=== PATIENT | female | born 1985 | race African-American/Black ===

== ENCOUNTER 2017-03-30 20:23 | Emergency (ER) | payer MEDICAID, OTHER ==
[2017-03-30 20:39] VITALS: BP 124/77
--- NOTE | 2017-03-30 20:58 | ER Document Report ---
ED Skin Rash/Insect Bite/Abscs - General Chief Complaint: Itching Stated Complaint: RASH, ITCHING Time Seen by Provider: 03/30/17 20:41 Mode of Arrival: Ambulatory Information source: Patient TRAVEL OUTSIDE OF THE [place] IN LAST 30 DAYS: No - HPI Patient complains to provider of: Other - Itching Onset: Other - Months Onset/Duration: Constant Quality of pain: No pain Severity: Moderate Skin Temperature: Warm Quality of rash: Itchy Notes: Patient arrives with complaints of itching skin with swelling to her hands and feet. She states that this is been going on for approximately 7 months. She has been taking Benadryl and Zyrtec. She has an appointment with an acid tank cleaner in 3 days. They told her to stop taking antihistamines and since she has stopped her symptoms have worsened. She denies any difficulty breathing or swallowing. No fever. No chest pain or shortness of breath. No abdominal pain. No nausea vomiting diarrhea. Her itching is now worse in her hand and feet swelling has worsened so she came emergency department hoping to get something that would help her with her itching that was not Benadryl. She denies any other complaints at this time. Past Medical History - Social History Smoking Status: Unknown if Ever Smoked Family History: Arthritis, DM, Hypertension, Malignancy Patient has suicidal ideation: No Patient has homicidal ideation: No Neurological Medical History: Reports: Hx Migraine Renal/ Medical History: Denies: Hx Peritoneal Dialysis Past Surgical History: Reports: Hx Section Review of Systems - Review of Systems -: Yes All other systems reviewed and negative Physical Exam - Vital signs Vitals: Temp Pulse Resp BP Pulse Ox 98.3 F 81 18 124/77 99 03/30/17 20:33 03/30/17 20:33 03/30/17 20:33 03/30/17 20:33 03/30/17 20:33 - Notes Notes: GENERAL: alert, cooperative, nontoxic, no distress. HEAD: normocephalic, atraumatic EYES: conjunctiva pink without discharge, no external redness or swelling. EARS: no external swelling, no external redness NOSE: atraumatic, no external swelling MOUTH/THROAT: mucous membranes moist and pink, posterior pharynx without erythema, swelling, exudate. No trismus or drooling. NECK: soft, supple, full range of motion, no meningismus. CHEST: no distress, lungs clear and equal throughout. No wheezing, rales, rhonchi. CARDIAC: regular rate and rhythm, no murmur, normal capillary refill, normal pulses. No peripheral edema noted. ABDOMEN: Soft, nontender. BACK: full range of motion, no CVA tenderness. EXTREMITIES: full range of motion of all extremities. Mild swelling noted to the bilateral hands and feet. No calf or arm swelling. NEURO: alert and oriented x 3, no focal deficits, full range of motion of all extremities. PYSCH: appropriate mood, affect. Patient is cooperative. SKIN: pink, warm, dry, no rash. Course - Re-evaluation Re-evalutation: 03/30/17 20:55 Patient is nontoxic appearing with stable vitals. The patient has had itching and swelling to her hands and feet for 7 months. She has been taking Zyrtec and Benadryl. She has an appointment with an acid tank cleaner in 3 days and they instructed her to stop taking these medications in order to do allergy testing. Patient states that since she has stopped taking these medications her swelling and itching has worsened. No difficulty breathing or swallowing. She has a benign exam. She is noted to have mild swelling to the hands and feet. No signs of infection. Patient will be discharged home with a prescription for Naprosyn. She was instructed to follow-up with her acid tank cleaner as scheduled. Follow-up sooner for difficulty breathing, high fevers, any further concerns. The patient is noted to have elevated blood pressure during today's emergency department visit. The patient was informed of this finding. The patient was instructed that this may be related to pre-hypertension and requires further evaluation with a primary care provider. The patient has no hypertensive symptoms at this time. - Vital Signs Vital signs: Temp Pulse Resp BP Pulse Ox 98.3 F 81 18 124/77 99 03/30/17 20:33 03/30/17 20:33 03/30/17 20:33 03/30/17 20:33 03/30/17 20:33 Discharge - Discharge Clinical Impression: Pruritus, Bilateral hand swelling Condition: Stable Disposition: HOME, SELF-CARE Instructions: Acute Allergic Reaction ([facility]) Additional Instructions: Take medications as prescribed. Avoid taking antihistamines prior to your allergy testing. Follow-up with your acid tank cleaner as scheduled in 3 days. Follow- up sooner for worsening symptoms, high fever, difficulty breathing or swallowing , or any further concerns. Your blood pressure was elevated during today's visit. Have this rechecked with your doctor. Prescriptions: Naproxen 500 mg PO BID #20 tablet Forms: Elevated Blood Pressure Referrals: [facility] [Provider Group] - Follow up as needed
== END 2017-03-30 21:04 | disposition home or self-care (01) ==
LOC: ER 20:23
DX: L29.9 Pruritus, unspecified (principal); R22.33 Localized swelling, mass and lump, upper limb, bilateral
CPT/HCPCS: 99282

== ENCOUNTER 2017-10-07 19:25 | Emergency (ER) | payer OTHER ==
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
[2017-10-07] MEDS ORDERED: ACETAMINOPHEN 325 MG TABLET PO ONE (20:08)
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
[2017-10-07 21:24] VITALS: BP 132/82
== END 2017-10-07 21:24 | disposition home or self-care (01) ==
LOC: ER 19:25
DX: S39.012A Strain of muscle, fascia and tendon of lower back, initial encounter (principal); R51 Headache; V49.40XA Driver injured in collision with unspecified motor vehicles in traffic accident, initial encounter
CPT/HCPCS: 72110; 99284

== ENCOUNTER 2018-04-30 16:30 | Emergency (ER) | payer MEDICAID, OTHER ==
[2018-04-30 16:38] VITALS: BP 113/75
[2018-04-30] MEDS ORDERED: ACETAMINOPHEN 325 MG TABLET PO ONE (17:21)
[2018-04-30] MEDS ORDERED: IBUPROFEN 600 MG TABLET PO ONE (17:21)
--- NOTE | 2018-04-30 17:27 | ER Document Report ---
HPI - HPI Patient complains to provider of: Low back pain Onset: Other Onset/Duration: Gradual Pain Level: 4 Context: 32-year-old female started having low back pain on Friday morning. Friday the came back and moved a lot of boxes. No radiculopathy or saddle anesthesia. No fever or chills. No IV drug use. No history of cancer. She has not taken any medication for the pain. Does not get periods because of the Mirena. Associated Symptoms: None Exacerbated by: Movement Relieved by: Denies Similar symptoms previously: No Recently seen / treated by doctor: No - ROS ROS below otherwise negative: Yes Systems Reviewed and Negative: Yes All other systems reviewed and negative Past Medical History - General Information source: Patient - Social History Smoking Status: Unknown if Ever Smoked Lives with: Family Family History: Arthritis, DM, Hypertension, Malignancy Neurological Medical History: Reports: Hx Migraine Renal/ Medical History: Denies: Hx Peritoneal Dialysis Past Surgical History: Reports: Hx Section - Immunizations Hx Diphtheria, Pertussis, Tetanus Vaccination: No Vertical Provider Document - CONSTITUTIONAL Agree With Documented VS: Yes Exam Limitations: No Limitations - INFECTION CONTROL TRAVEL OUTSIDE OF THE [place] IN LAST 30 DAYS: No - BACK Back: Normal Inspection. negative: CVA Tenderness-Right, CVA Tenderness-Left Notes: Tender lumbar paraspinal muscles - MUSCULOSKELETAL/EXTREMETIES Musculoskeletal/Extremeties: MAEW, Tender - See above - NEURO Level of Consciousness: Awake Motor/Sensory: No Motor Deficit, No Sensory Deficit Deep Tendon Reflexes: 2+ - Bilateral ankle and patellar Course - Vital Signs Vital signs: Temp Pulse Resp BP Pulse Ox 98.1 F 73 17 113/75 98 04/30/18 16:36 04/30/18 16:36 04/30/18 16:36 04/30/18 16:36 04/30/18 16:36 Discharge - Discharge Clinical Impression: Low back strain Condition: Good Disposition: HOME, SELF-CARE Instructions: Low Back Pain ([facility]), Muscle Strain ([facility]), Warm Packs ([facility]), Acetaminophen, Ibuprofen (General) ([facility]), Muscle Relaxers ([facility]), Chiropractor Additional Instructions: Warm compress Tylenol up to 4000 mg a day for pain Ibuprofen or Motrin 600 mg 3 times a day for inflammation and pain Gentle stretching See chiropractor Return to the emergency room if symptoms worsen Prescriptions: Ibuprofen [Motrin 600 mg Tablet] 600 mg PO Q8HP PRN #30 tablet PRN Reason: Cyclobenzaprine HCl [Flexeril 10 Mg Tablet] 10 mg PO TIDP PRN #20 tablet PRN Reason:
== END 2018-04-30 17:28 | disposition home or self-care (01) ==
LOC: ER 16:30
DX: S39.012A Strain of muscle, fascia and tendon of lower back, initial encounter (principal); X58.XXXA Exposure to other specified factors, initial encounter
CPT/HCPCS: 99283

== ENCOUNTER 2019-12-14 22:35 | Observation (INO) | payer OTHER ==
[2019-12-14 23:35] LABS: ABSOLUTE LYMPHOCYTES (AUTO) 0.9 10^3/uL (0.5-4.7); ABSOLUTE MONOCYTES (AUTO) 0.7 10^3/uL (0.1-1.4); ABSOLUTE NEUT (AUTO) 7.7 10^3/uL (1.7-8.2); BASOPHILS % (AUTO) 0.2 % (0-2); EOSINOPHILS % (AUTO) 0.4 % (0-6); HEMATOCRIT 37.7 % (36.0-47.0); HEMOGLOBIN 12.9 g/dL (12.0-15.5); LYMPHOCYTES % (AUTO) 9.7 % (13-45); MEAN CORPUSCULAR HEMOGLOBIN 27.8 pg (27.0-33.4); MEAN CORPUSCULAR HGB CONC 34.2 g/dL (32.0-36.0); MEAN CORPUSCULAR VOLUME 81 fl (80-97); MONOCYTES % (AUTO) 7.4 % (3-13); PLATELET COUNT 217 10^3/uL (150-450); RED BLOOD COUNT 4.63 10^6/uL (3.72-5.28); RED CELL DISTRIBUTION WIDTH 13.2 % (11.5-14.0); SEGMENTED NEUTROPHILS % (AUTO) 82.3 % (42-78); TOTAL CELLS COUNTED % (AUTO) 100 %; WHITE BLOOD COUNT 9.4 10^3/uL (4.0-10.5)
[2019-12-14 23:46] LABS: ALBUMIN 4.4 g/dL (3.5-5.0); ALKALINE PHOSPHATASE 65 U/L (38-126); ANION GAP 6 (5-19); ASPARTATE AMINO TRANSFERASE 33 U/L (14-36); BILIRUBIN,TOTAL 0.2 mg/dL (0.2-1.3); BLOOD UREA NITROGEN 13 mg/dL (7-20); CALCIUM 9.5 mg/dL (8.4-10.2); CARBON DIOXIDE 30 mmol/L (22-30); CHLORIDE 101 mmol/L (98-107); GLUCOSE 131 mg/dL (75-110); POTASSIUM 3.9 mmol/L (3.6-5.0); TOTAL PROTEIN 7.5 g/dL (6.3-8.2)
[2019-12-14 23:51] LABS: ADD MANUAL MICROSCOPIC YES; APPEARANCE,URINE CLEAR; BILIRUBIN,URINE NEGATIVE (NEGATIVE); COLOR,URINE STRAW; GLUCOSE, URINE NEGATIVE (NEGATIVE); KETONES,URINE NEGATIVE (NEGATIVE); LEUKOCYTE ESTERASE,URINE NEGATIVE (NEGATIVE); NITRITE,URINE NEGATIVE (NEGATIVE); PROTEIN,URINE NEGATIVE (NEGATIVE); URINE SPECIFIC GRAVITY 1.014; UROBILINOGEN,URINE NEGATIVE mg/dL (<2.0)
[2019-12-14 23:52] LABS: AMORPHOUS SEDIMENT,UR 1+; BACTERIA,URINE TRACE /HPF; CALCIUM OXALATE CRYSTALS,UR FEW /HPF
[2019-12-15] MEDS ORDERED: MORPHINE SULFATE 10 MG/ML INJ IV ONE (00:32)
--- NOTE | 2019-12-15 00:34 | ER Document Report ---
ED GI/ - General Chief Complaint: Abdominal Pain Stated Complaint: STOMACH PAINS/DIZZINESS Time Seen by Provider: 12/15/19 00:18 Mode of Arrival: Ambulatory Information source: Patient Notes: Patient is a 34-year-old female presenting to the emergency department chief complaint of lower abdominal pain. Patient reports pain started at approximately 7:00 this evening. She reports that it is a sharp stabbing pain. She denies any nausea, vomiting, diarrhea, fevers, dysuria or abnormal dis charge. Patient has never had pain like this before. Her last bowel movement was yesterday and she describes it as normal. She states the pain is constant and worse with movements. TRAVEL OUTSIDE OF THE [place] IN LAST 30 DAYS: No - Related Data Allergies/Adverse Reactions: amoxicillin Allergy (Verified 10/07/17 19:30) Home Medications: Zyrtec Past Medical History - General Information source: Patient - Social History Smoking Status: Never Smoker Frequency of alcohol use: None Drug Abuse: None Family History: Arthritis, DM, Hypertension, Malignancy Patient has homicidal ideation: No - Medical History Medical History: Negative Neurological Medical History: Reports: Hx Migraine Renal/ Medical History: Denies: Hx Peritoneal Dialysis Past Surgical History: Reports: Hx Section - Immunizations Hx Diphtheria, Pertussis, Tetanus Vaccination: No Review of Systems - Review of Systems Constitutional: denies: Fever Gastrointestinal: Abdominal pain -: Yes All other systems reviewed and negative Physical Exam - Vital signs Vitals: Temp Pulse Resp BP Pulse Ox 100.1 F 98 22 H 130/79 H 99 12/14/19 23:02 12/14/19 23:02 12/14/19 23:02 12/14/19 23:02 12/14/19 23:02 - Notes Notes: PHYSICAL EXAMINATION: GENERAL: Well-appearing, well-nourished and in moderate distress. HEAD: Atraumatic, normocephalic. EYES: Pupils equal round and reactive to light, extraocular movements intact, conjunctiva are normal. ENT: Nares patent, oropharynx clear without exudates. Moist mucous membranes. NECK: Normal range of motion, supple without lymphadenopathy LUNGS: Breath sounds clear to auscultation bilaterally and equal. No wheezes rales or rhonchi. HEART: Regular rate and rhythm without murmurs ABDOMEN: Soft, nondistended abdomen. Tenderness noted in the right lower and left lower quadrants. No guarding, no rebound. No masses appreciated. Female : Normal external genitalia, thin white vaginal discharge noted, no cervical motion tenderness or adnexal tenderness. Musculoskeletal: Normal range of motion, no pitting or edema. No cyanosis. NEUROLOGICAL: Cranial nerves grossly intact. Normal speech, normal gait. Normal sensory, motor exams PSYCH: Normal mood, normal affect. SKIN: Warm, Dry, normal turgor, no rashes or lesions noted. Course - Re-evaluation Re-evalutation: 12/15/19 03:[address] Lugo for acute appendicitis. - Vital Signs Vital signs: Temp Pulse Resp BP Pulse Ox 98.6 F 98 22 H 130/79 H 99 12/15/19 00:39 12/14/19 23:02 12/14/19 23:02 12/14/19 23:02 12/14/19 23:02 - Laboratory Result Diagrams: 12/14/19 23:20 12/14/19 23:20 Laboratory results interpreted by me: 12/14/19 12/14/19 12/14/19 23:20 23:20 23:20 Lymph % (Auto) 9.7 L Seg Neutrophils % 82.3 H Sodium 136.9 L Glucose 131 H Urine Blood SMALL H Discharge - Discharge Clinical Impression: Acute appendicitis Qualifiers: Acute appendicitis type: unspecified acute appendicitis type Qualified Code(s): K35.80 - Unspecified acute appendicitis Condition: Stable Disposition: ADMITTED INPATIENT Admitting Provider: Yanethist Lilli Lugo Unit Admitted: Surgical Floor
[2019-12-15 01:46] LABS: T.VAGINALIS (WET MOUNT) NO TRICHOMONAS SEEN; WBCS (WET MOUNT) RARE WBCS SEEN; YEAST (WET MOUNT) NO YEAST SEEN
--- NOTE | 2019-12-15 03:00 | RADIOLOGY REPORT (SQ) ---
CT ABDOMEN AND PELVIS WITH INTRAVENOUS CONTRAST: 12/15/2019 1:46 AM CDT HISTORY: 34-year old with severe low abdominal pain. COMPARISON: None available TECHNIQUE: Axial contiguous images were obtained from the lung bases to the proximal femurs with intravenous intravenous contrast administered. Sagittal and coronal reconstructions were also obtained and reviewed. This exam was performed according to our departmental dose-optimization program, which includes automated exposure control, adjustment of the mA and/or KV according to the patient's size and/or use of iterative reconstruction technique. FINDINGS: No focal consolidative airspace opacities are seen. No discrete pleural effusion is seen. The visualized hepatic parenchyma is diffusely low in attenuation. No focal enhancing lesion is seen. The gallbladder demonstrates no evidence of calcified gallstones The spleen, pancreas, and adrenals are normal in size and contour. The kidneys demonstrate no evidence of hydronephrosis. Bladder is minimally distended, but grossly appears unremarkable. The uterus is present. The stomach is not well distended. The small bowel loops appear unremarkable. No pericolonic inflammatory stranding is seen. The tip of the appendix is enlarged with adjacent inflammatory stranding. This may reflect early developing appendicitis. The appendix measures at least 8 mm in transverse dimension. There is no evidence of pneumoperitoneum or free fluid. The aorta and IVC appear normal in size. No significantly enlarged lymph nodes are seen in the abdomen or pelvis. Review of the bone show no evidence of any suspicious lytic or blastic lesions. IMPRESSION: The distal portion of the appendix is enlarged with adjacent inflammatory stranding concerning for acute early appendicitis. Hepatic steatosis
[2019-12-15] MEDS ORDERED: CIPROFLOXACIN 400 MG/D5W RTU 400 MG/200 ML RTUPB IV ONE (03:23)
[2019-12-15] MEDS ORDERED: ONDANSETRON HCL INJ/PF 4 MG/2 ML SDV IV PRN (03:24)
[2019-12-15] MEDS ORDERED: MORPHINE SULFATE 10 MG/ML INJ IV PRN (03:24)
[2019-12-15 03:53] LABS: CHLAM PCR NOT DETECTED (NOT DETECT)
[2019-12-15] MEDS ORDERED: METRONIDAZOLE 500 MG/NS RTU 500 MG/100 ML RTUPB IV ONE (04:30)
[2019-12-15] MEDS ORDERED: NEOSTIGMINE METHYLSULFATE 10 MG/10 ML VIAL ONE (05:00)
[2019-12-15] MEDS ORDERED: SUCCINYLCHOLINE CHLORIDE INJ 200 MG/10 ML VIAL ONE (05:00)
[2019-12-15] MEDS ORDERED: ROCURONIUM BROMIDE INJ 50 MG/5 ML VIAL IV ONE (05:00)
[2019-12-15] MEDS ORDERED: GLYCOPYRROLATE 1 MG/5 ML VIAL ONE (05:00)
[2019-12-15] MEDS: KETOROLAC TROMETHAMINE INJ/PF 30 MG/1 ML SDV IV SCH ×3 (05:30→22:05)
[2019-12-15] MEDS: DEXTROSE 5%-LACTATED RINGERS 1,000 ML IV PRN ×2 (05:31→16:06)
--- NOTE | 2019-12-15 10:51 | PDOC H&P ---
History of Present Illness Admission Date/PCP: 12/15/19 03:34 Patient complains of: right lower quadrant pain History of Present Illness: LALIT ESPOSITO is a 34 year old female with a 12-hour history of sharp, stabbing right lower quadrant pain. The patient's pain started out as mild, however it has progressed throughout the night. At its worst, it rated 6 out of 10. It did not radiate. Palpation makes it worse. Pain medications make it better. She presented to the emergency department for evaluation. A CT scan was performed, showing thickening and inflammation of the appendix. The patient was referred to surgery for evaluation and treatment. The patient denies chest pain, shortness of breath, vomiting, melena, hematochezia, hematemesis, he adache, dizziness, orthostasis, fatigue, malaise. She does report right lower quadrant abdominal pain and nausea. Past Medical History Neurological Medical History: Reports: Migraine Psychiatric Medical History: Denies: Depression Past Surgical History Past Surgical History: Reports: Section Social History Smoking Status: Never Smoker Frequency of Alcohol Use: None Hx Recreational Drug Use: No Drugs: None Hx Prescription Drug Abuse: No Family History Family History: Arthritis, DM, Hypertension, Malignancy Parental Family History Reviewed: Yes Children Family History Reviewed: Yes Sibling(s) Family History Reviewed.: Yes Medication/Allergy Home Medications: No Home Medications 12/15/19 Allergies/Adverse Reactions: amoxicillin Allergy (Verified 12/15/19 07:58) MCLEAN SKIN Review of Systems Constitutional: ABSENT: anorexia, chills, fatigue, fever(s), headache(s), weakness Eyes: ABSENT: visual disturbances Ears: ABSENT: hearing changes Nose, Mouth, and Throat: ABSENT: sore throat Cardiovascular: ABSENT: chest pain Respiratory: ABSENT: cough, dyspnea Gastrointestinal: PRESENT: abdominal pain, nausea. ABSENT: hematemesis, hematochezia, melena, vomiting Genitourinary: ABSENT: dysuria Musculoskeletal: ABSENT: back pain Integumentary: ABSENT: pruritus, rash Neurological: ABSENT: confusion, convulsions, dizziness Psychiatric: ABSENT: anxiety, depression Endocrine: ABSENT: cold intolerance, heat intolerance Hematologic/Lymphatic: ABSENT: easy bleeding, easy bruising Physical Exam Vital Signs: Temp Pulse Resp BP Pulse Ox 98.3 F 77 14 104/54 L 99 12/15/19 07:30 12/15/19 07:30 12/15/19 07:30 12/15/19 07:30 12/15/19 07:30 Intake & Output 12/14/19 12/15/19 12/16/19 06:59 06:59 06:59 Intake Total 100 Output Total 200 Balance -100 Weight 102.4 kg General appearance: PRESENT: no acute distress, cooperative, obese Head exam: PRESENT: atraumatic, normocephalic Eye exam: PRESENT: EOMI, PERRLA. ABSENT: scleral icterus Mouth exam: PRESENT: moist, neck supple Neck exam: ABSENT: meningismus, tenderness, thyromegaly, tracheal deviation Respiratory exam: PRESENT: unlabored. ABSENT: tachypnea, wheezes Cardiovascular exam: ABSENT: tachycardia Vascular exam: ABSENT: pallor GI/Abdominal exam: PRESENT: soft, tenderness - Right lower quadrant. ABSENT: distended Rectal exam: PRESENT: deferred Extremities exam: ABSENT: clubbing Musculoskeletal exam: ABSENT: deformity Neurological exam: PRESENT: alert, awake, oriented to person, oriented to place, oriented to time, oriented to situation, CN II-XII grossly intact. ABSENT: motor sensory deficit Psychiatric exam: ABSENT: agitated, anxious, depressed Focused psych exam: ABSENT: delusional Skin exam: ABSENT: cyanosis, erythema, jaundice Results Laboratory Results: 12/14/19 23:20 12/14/19 23:20 12/14/19 12/14/19 12/14/19 23:20 23:20 23:20 WBC 9.4 RBC 4.63 Hgb 12.9 Hct 37.7 MCV 81 MCH 27.8 MCHC 34.2 RDW 13.2 Plt Count 217 Seg Neutrophils % 82.3 H Sodium 136.9 L Potassium 3.9 Chloride 101 Carbon Dioxide 30 Anion Gap 6 BUN 13 Creatinine 0.97 Est GFR ( Amer) > 60 Glucose 131 H Calcium 9.5 Total Bilirubin 0.2 AST 33 Alkaline Phosphatase 65 Total Protein 7.5 Albumin 4.4 Lipase 146.7 Urine Color STRAW Urine Appearance CLEAR Urine pH 8.0 Ur Specific [place] 1.014 Urine Protein NEGATIVE Urine Glucose (UA) NEGATIVE Urine Ketones NEGATIVE Urine Blood SMALL H Urine Nitrite NEGATIVE Ur Leukocyte Esterase NEGATIVE Ur Squamous Epith Cells MODERATE Impressions: Abdomen/Pelvis CT 12/15/19 00:33 IMPRESSION: The distal portion of the appendix is enlarged with adjacent inflammatory stranding concerning for acute early appendicitis. Hepatic steatosis Assessment & Plan - Diagnosis (1) Acute appendicitis Qualifiers: Acute appendicitis type: unspecified acute appendicitis type Qualified Code(s): K35.80 - Unspecified acute appendicitis Is this a current diagnosis for this admission?: Yes - Plan Summary Plan Summary: This is a 34-year-old female with right lower quadrant pain, preponderance of segmented neutrophils, and a CT scan showing thickening and inflammation of the appendix. I believe the patient is experiencing early acute appendicitis. I have recommended operative intervention (appendectomy). The patient has agreed to this. Risks/benefits discussed, informed consent obtained, and all questions answered.
[2019-12-15] MEDS: FAMOTIDINE INJ/PF 20 MG/2 ML SDV IV SCH ×2 (12:44→22:05)
[2019-12-15] MEDS: METRONIDAZOLE 500 MG/NS RTU 500 MG/100 ML RTUPB IV SCH ×2 (12:45→22:05)
[2019-12-15] MEDS ORDERED: KETOROLAC TROMETHAMINE 60 MG/2 ML SDV ONE (12:54)
[2019-12-15] MEDS ORDERED: ONDANSETRON HCL INJ/PF 4 MG/2 ML SDV ONE (12:54)
[2019-12-15] MEDS ORDERED: FENTANYL CITRATE INJ/PF 100 MCG/2 ML AMPUL ONE (12:54)
[2019-12-15] MEDS ORDERED: HYDROMORPHONE HCL INJ/PF 2 MG/ML AMPULE ONE (12:54)
[2019-12-15] MEDS ORDERED: MIDAZOLAM 2 MG/2 ML INJ ONE (12:54)
[2019-12-15] MEDS ORDERED: DEXAMETHASONE SOD PHOSPHATE INJ 4 MG/1 ML VIAL ONE (12:54)
[2019-12-15] MEDS ORDERED: PROPOFOL INJ 200 MG/20 ML VIAL IV ONE (12:55)
[2019-12-15] MEDS ORDERED: BUPIVACAINE HCL 0.25 % INJ/PF (2.5 MG/1 ML) 30 ML VIAL ONE (13:06)
[2019-12-15] MEDS ORDERED: FENTANYL CITRATE INJ/PF 100 MCG/2 ML AMPUL IV PRN ×3 (14:26)
[2019-12-15] MEDS ORDERED: MEPERIDINE HCL/PF INJ 25 MG/1 ML DISP.SYRIN IV PRN (14:26)
[2019-12-15] MEDS ORDERED: OXYCODONE-ACETAMINOPHEN 5-325 MG TABLET PO PRN ×2 (14:26)
[2019-12-15] MEDS ORDERED: DIPHENHYDRAMINE HCL 50 MG/ML VIAL IV PRN (14:26)
[2019-12-15] MEDS ORDERED: PROMETHAZINE HCL INJ 25 MG/1 ML VIAL IV PRN ×2 (14:26)
--- NOTE | 2019-12-15 14:54 | Operative Report ---
Nonrecallable Operative Report DATE OF SURGERY: 12/15/19 PREOPERATIVE DIAGNOSIS: Acute appendicitis POSTOPERATIVE DIAGNOSIS: Acute nonperforated appendicitis OPERATION: Laparoscopic appendectomy SURGEON: CHRISTIANO STAPLES 1ST MENTAL HEALTH SPECIALIST: LORENA LIGHT ANESTHESIA: GA TISSUE REMOVED OR ALTERED: appendix COMPLICATIONS: none apparent ESTIMATED BLOOD LOSS: Minimal PROCEDURE: Drains/implants: None. Procedure in detail: After informed consent was obtained, the patient was brought into the operating room and laid in the supine position. The area of the abdomen was prepped and draped in a normal sterile fashion. A supraumbilical incision was created with a 15 blade scalpel. Dissection was carried through the subcutaneous tissues using sharp and blunt dissection. The linea alba fascia was incised sharply, the abdomen was entered sharply. The balloon trocar was inserted, and pneumoperitoneum was achieved. A 5 mm suprapubic trocar was placed under direct laparoscopic visualization. A left lower quadrant 5 mm trocar was placed in similar fashion. Atraumatic graspers were placed through the 5 mm ports. The appendix was identified. The tip of the appendix was injected and inflamed. The appendix was retracted anteriorly. The mesoappendix was taken down using the harmonic scalpel. 2 PDS Endoloops were secured around the base of the appendix. The appendix was then amputated with the harmonic scalpel. The appendix was placed into an Endo Catch bag, and pulled out through the umbilicus. The camera was reinserted. The right lower quadrant was inspected. It was found to be hemostatic. The 5 mm trochars were then removed under direct laparoscopic visualization. The supraumbilical trocar was removed, and pneumoperitoneum was relieved. The supraumbilical fascia was closed using 0 Vicryl suture in [id number] fashion. The overlying skin was closed using 4-0 Vicryl Rapide suture in subcuticular fashion. Dressings were placed, and the procedure was concluded. All sponge, instrument, and needle counts were correct x2. Condition: Stable. Lorena Light PA-C was scrubbed and present the entirety of the procedure. She assisted with all portions of the procedure including placement of the trochars, manipulation of the appendix, removal of the appendix, closure of the fascia, and closure of the skin.
[2019-12-15] MEDS: CIPROFLOXACIN 400 MG/D5W RTU 400 MG/200 ML RTUPB IV SCH (16:08)
[2019-12-16] MEDS: DEXTROSE 5%-LACTATED RINGERS 1,000 ML IV PRN (04:31)
[2019-12-16] MEDS: METRONIDAZOLE 500 MG/NS RTU 500 MG/100 ML RTUPB IV SCH (05:11)
[2019-12-16] MEDS: KETOROLAC TROMETHAMINE INJ/PF 30 MG/1 ML SDV IV SCH (05:11)
--- NOTE | 2019-12-16 06:06 | PDOC DISCHARGE SUMMARY ---
General - Admit/Disc Date/PCP Admission Date/Primary Care Provider: 12/15/19 03:34 Discharge Date: 12/16/19 - Discharge Diagnosis Final Diagnosis: Acute nonperforated appendicitis - Assessment Summary: This is a 34-year-old female admitted with right lower quadrant pain and thickening of the appendix, seen on CT scan. She was taken to the operating room on 12/15/2019 for laparoscopic appendectomy. Surgery was successful, and she was taken to the floor in stable condition. She began tolerating a diet, and ambulating. By 12/16/2019 she was doing well, her pain was controlled, she was afebrile, and she was tolerating a regular diet. At this time it is felt that she has reached maximal hospital benefit, and is fit for discharge. - Additional Information Resuscitation Status: Full Code Discharge Diet: As Tolerated Discharge Activity: No Lifting Over 10 Pounds, No Lifting/Push/Pulling Prescriptions: Hydrocodone/Acetaminophen [Hurley 10-325 mg Tablet] 1 tab PO Q6HP PRN #14 tablet PRN Reason: For Pain Home Medications: Hydrocodone/Acetaminophen [Hurley 10-325 mg Tablet] 1 tab PO Q6HP PRN #14 tablet 12/16/19 Additional Information: Discharge home. Diet as tolerated. Activity: No lifting greater than 10 pounds x 2 weeks. Follow-up with [facility] in 7 to 10 days. Okay to shower starting tomorrow, 12/17/2019. No tub baths x2 weeks. Hurley 10/325 mg p.o. every 6 hours as needed for pain. History of Present Illiness History of Present Illness: LALIT ESPOSITO is a 34 year old female with a 12-hour history of sharp, stabbing right lower quadrant pain. The patient's pain started out as mild, however it has progressed throughout the night. At its worst, it rated 6 out of 10. It did not radiate. Palpation makes it worse. Pain medications make it better. She presented to the emergency department for evaluation. A CT scan was performed, showing thickening and inflammation of the appendix. The patient was referred to surgery for evaluation and treatment. The patient denies chest pain, shortness of breath, vomiting, melena, hematochezia, hematemesis, headache, dizziness, orthostasis, fatigue, malaise. She does report right lower quadrant abdominal pain and nausea. Physical Exam Vital Signs: Temp Pulse Resp BP Pulse Ox 98.3 F 80 18 125/73 99 12/15/19 23:31 12/15/19 23:31 12/15/19 23:31 12/15/19 23:31 12/15/19 23:31 Intake & Output 12/14/19 12/15/19 12/16/19 06:59 06:59 06:59 Intake Total 100 3200 Output Total 200 20 Balance -100 3180 Weight 102.4 kg Results Laboratory Results: WBC 9.4 10^3/uL (4.0-10.5) 12/14/19 23:20 RBC 4.63 10^6/uL (3.72-5.28) 12/14/19 23:20 Hgb 12.9 g/dL (12.0-15.5) 12/14/19 23:20 Hct 37.7 % (36.0-47.0) 12/14/19 23:20 MCV 81 fl (80-97) 12/14/19 23:20 MCH 27.8 pg (27.0-33.4) 12/14/19 23:20 MCHC 34.2 g/dL (32.0-36.0) 12/14/19 23:20 RDW 13.2 % (11.5-14.0) 12/14/19 23:20 Plt Count 217 10^3/uL (150-450) 12/14/19 23:20 Lymph % (Auto) 9.7 % (13-45) L 12/14/19 23:20 [place] % (Auto) 7.4 % (3-13) 12/14/19 23:20 Eos % (Auto) 0.4 % (0-6) 12/14/19 23:20 Baso % (Auto) 0.2 % (0-2) 12/14/19 23:20 Absolute Neuts (auto) 7.7 10^3/uL (1.7-8.2) 12/14/19 23:20 Absolute Lymphs (auto) 0.9 10^3/uL (0.5-4.7) 12/14/19 23:20 Absolute Monos (auto) 0.7 10^3/uL (0.1-1.4) 12/14/19 23:20 Absolute Eos (auto) 0.0 10^3/uL (0.0-0.6) 12/14/19 23:20 Absolute Basos (auto) 0.0 10^3/uL (0.0-0.2) 12/14/19 23:20 Seg Neutrophils % 82.3 % (42-78) H 12/14/19 23:20 Sodium 136.9 mmol/L (137-145) L 12/14/19 23:20 Potassium 3.9 mmol/L (3.6-5.0) 12/14/19 23:20 Chloride 101 mmol/L (98-107) 12/14/19 23:20 Carbon Dioxide 30 mmol/L (22-30) 12/14/19 23:20 Anion Gap 6 (5-19) 12/14/19 23:20 BUN 13 mg/dL (7-20) 12/14/19 23:20 Creatinine 0.97 mg/dL (0.52-1.25) 12/14/19 23:20 Est GFR ( Amer) > 60 (>60) 12/14/19 23:20 Est GFR (MDRD) Non-Af > 60 (>60) 12/14/19 23:20 Glucose 131 mg/dL (75-110) H 12/14/19 23:20 Calcium 9.5 mg/dL (8.4-10.2) 12/14/19 23:20 Total Bilirubin 0.2 mg/dL (0.2-1.3) 12/14/19 23:20 Direct Bilirubin 0.0 mg/dL (0.0-0.4) 12/14/19 23:20 Neonat Total Bilirubin Not Reportable 12/14/19 23:20 Neonat Direct Bilirubin Not Reportable 12/14/19 23:20 Neonat Indirect Bili Not Reportable 12/14/19 23:20 AST 33 U/L (14-36) 12/14/19 23:20 ALT 26 U/L (<35) 12/14/19 23:20 Alkaline Phosphatase 65 U/L (38-126) 12/14/19 23:20 Total Protein 7.5 g/dL (6.3-8.2) 12/14/19 23:20 Albumin 4.4 g/dL (3.5-5.0) 12/14/19 23:20 Lipase 146.7 U/L (23-300) 12/14/19 23:20 Urine Color STRAW 12/14/19 23:20 Urine Appearance CLEAR 12/14/19 23:20 Urine pH 8.0 (5.0-9.0) 12/14/19 23:20 Ur Specific [place] 1.014 12/14/19 23:20 Urine Protein NEGATIVE mg/dL (NEGATIVE) 12/14/19 23:20 Urine Glucose (UA) NEGATIVE mg/dL (NEGATIVE) 12/14/19 23:20 Urine Ketones NEGATIVE mg/dL (NEGATIVE) 12/14/19 23:20 Urine Blood SMALL (NEGATIVE) H 12/14/19 23:20 Urine Nitrite NEGATIVE (NEGATIVE) 12/14/19 23:20 Urine Bilirubin NEGATIVE (NEGATIVE) 12/14/19 23:20 Urine Urobilinogen NEGATIVE mg/dL (<2.0) 12/14/19 23:20 Ur Leukocyte Esterase NEGATIVE (NEGATIVE) 12/14/19 23:20 Urine RBC 1-5 /HPF 12/14/19 23:20 Ur Squamous Epith Cells MODERATE /HPF 12/14/19 23:20 Calcium Oxalate Crystal FEW /HPF 12/14/19 23:20 Amorphous Sediment 1+ 12/14/19 23:20 Urine Bacteria TRACE /HPF 12/14/19 23:20 Urine Ascorbic Acid NEGATIVE (NEGATIVE) 12/14/19 23:20 Urine HCG, Qual NEGATIVE (NEGATIVE) 12/14/19 23:20 Trichomonas (Wet Prep) NO TRICHOMONAS SEEN 12/15/19 01:10 Vaginal WBC RARE WBCS SEEN 12/15/19 01:10 Vaginal Yeast NO YEAST SEEN 12/15/19 01:10 Chlamydia DNA (PCR) NOT DETECTED (NOT DETECT) 12/15/19 01:10 N.gonorrhoeae DNA (PCR) NOT DETECTED (NOT DETECT) 12/15/19 01:10 SARS-CoV-2 (PCR) NEGATIVE (NEGATIVE) 12/15/19 06:18 Impressions: Abdomen/Pelvis CT 12/15/19 00:33 IMPRESSION: The distal portion of the appendix is enlarged with adjacent inflammatory stranding concerning for acute early appendicitis. Hepatic steatosis
[2019-12-16] MEDS: CIPROFLOXACIN 400 MG/D5W RTU 400 MG/200 ML RTUPB IV SCH (06:13)
[2019-12-16 09:55] VITALS: BP 95/57
== END 2019-12-16 09:55 | disposition home or self-care (01) ==
LOC: ER 22:35 → EH 12-15 03:34 → 4W 12-15 05:27
PROVIDERS: ATTEND Surgery
DX: K35.80 Unspecified acute appendicitis (principal); Z11.59 Encounter for screening for other viral diseases; E66.9 Obesity, unspecified
CPT/HCPCS: 44970; 99285; 96375; 96365; 36415; 87040; 87210; 83690; 85025; 87635; 81025; 80053; 81001; 87491; 87591; 88304 ×2; 74177; 00840; J2250; J3490 ×4; J1100; J1885 ×3; J3010; J2270; J2710; J1170; J0330; J2405; J7121 ×2; J2704; J0744 ×2; S0028; 840